=== PATIENT | male | born 1940 | race Caucasian/White ===

== ENCOUNTER 2024-08-22 13:09 | Emergency (ER) | payer MEDICARE, OTHER ==
[~2024-08-22] VITALS: Ht 175.3 cm; Wt 65.9 kg
[~2024-08-22 13:09] MED LIST: CIPROFLAXIN OR; FLAG500T OR; LIPI10TA OR; LISI20TA5 OR; MECL25TA2 OR; PRED; PRED OR; PREDPOW10 OR; VICO5TAB OR; XALATAN OU
[2024-08-22 13:35] VITALS: TEMP 97.8
[2024-08-22] MEDS: ONDANSETRON 4MG 2ML VIAL IV ONE (13:49)
[2024-08-22] MEDS: diazePAM 10MG/2ML SYRINGE IV ONE (13:49)
[2024-08-22] MEDS ORDERED: MECLIZINE 25 MG TABLET PO ONE (14:25)
[2024-08-22] MEDS: MECLIZINE 25 MG TABLET PO ONE (14:42)
[2024-08-22] MEDS ORDERED: ONDA-282 PO (18:10)
[2024-08-22 18:15] VITALS: BP 185/72; O2SAT 97
== END 2024-08-22 18:41 | disposition home or self-care (01) ==
LOC: EDBD 13:09 → M ED 13:09
DX: H81.4 Vertigo of central origin (principal); I10 Essential (primary) hypertension; E78.5 Hyperlipidemia, unspecified; F17.210 Nicotine dependence, cigarettes, uncomplicated; Z88.6 Allergy status to analgesic agent; Z79.1 Long term (current) use of non-steroidal anti-inflammatories (NSAID); Z79.899 Other long term (current) drug therapy
CPT/HCPCS: 93041; 96374; 99285; J2405; J3360